=== PATIENT | male | born 1980 | race Two or more races ===

== ENCOUNTER 2019-04-18 06:35 | Emergency (ER) | payer OTHER ==
[2019-04-18] MEDS ORDERED: ACETAMINOPHEN 325 MG TABLET PO ONE (07:02)
--- NOTE | 2019-04-18 09:53 | ER Document Report ---
ED General - General Chief Complaint: Fever Stated Complaint: CONGESTION,FEVER,SORE THROAT,SHORTNESS OF BREATH Time Seen by Provider: 04/18/19 09:48 Primary Care Provider: [facility] [Outside] - Follow up in 1 week TRAVEL OUTSIDE OF THE [place] IN LAST 30 DAYS: No - HPI Notes: 38-year-old male to the emergency department with complaints of generalized body aches, fever, cough, headache, sore throat that began 2 days ago. He states that he has not been measuring his fever at home but is just felt hot. Today he has a fever of 101. He states he has been taking vywe-eur-orumfce Carol-Bricelyn without relief. He states he is concerned he may have strep throat because his daughter had strep throat. Did not get a flu shot this season. He is unsure if he has had any other sick contacts. He denies any chest pain or shortness of breath. He states his cough is productive. - Related Data Allergies/Adverse Reactions: No Known Allergies Allergy (Verified 04/18/19 07:01) Past Medical History - General Information source: Patient - Social History Smoking Status: Never Smoker Chew tobacco use (# tins/day): Yes Frequency of alcohol use: None Drug Abuse: None Lives with: Family Family History: Reviewed & Not Pertinent Patient has suicidal ideation: No Patient has homicidal ideation: No Review of Systems - Review of Systems Constitutional: Chills, Fever EENT: Nose congestion, Throat pain. denies: Ear pain Cardiovascular: denies: Chest pain, Heart racing, Orthopnea, Dizziness, Lightheaded Respiratory: Cough. denies: Short of breath, Wheezing Gastrointestinal: denies: Abdominal pain, Diarrhea, Nausea, Vomiting Genitourinary: No symptoms reported Musculoskeletal: Muscle pain - Generalized body aches Skin: No symptoms reported Hematologic/Lymphatic: No symptoms reported Neurological/Psychological: No symptoms reported -: Yes All other systems reviewed and negative Physical Exam - Vital signs Vitals: Temp Pulse Resp BP Pulse Ox 101.3 F H 104 H 20 127/73 H 97 04/18/19 07:00 04/18/19 07:00 04/18/19 07:00 04/18/19 07:00 04/18/19 07:00 Interpretation: Normal, Febrile - General General appearance: Appears well, Alert In distress: None - HEENT Head: Normocephalic, Atraumatic Eyes: Normal Pupils: PERRL Ears: Normal External canal: Normal Tympanic membrane: Normal. No: Bulging, Hemotympanum, Injected, Perforation Sinus: Normal Nasal: Normal. No: Purulent discharge Mouth/Lips: Normal. No: Angioedema Mucous membranes: Normal Pharynx: Erythema - There is mild posterior oropharyngeal erythema without exudate. No evidence for David's angina. No evidence for peritonsillar abscess. Airway is grossly patent. Uvula without edema. Uvula is midline.. No: Peritonsillar abscess, Retropharyngeal abscess, Tonsillar hypertrophy, Uvular edema, Potential airway comprom. Neck: Normal, Supple. No: Lymphadenopathy, Meningismus - Respiratory Respiratory status: No respiratory distress Chest status: Nontender. No: Accessory muscle use Breath sounds: Normal. No: Rales, Rhonchi, Wheezing Chest palpation: Normal - Cardiovascular Rhythm: Regular Heart sounds: Normal auscultation Murmur: No - Abdominal Inspection: Normal Distension: No distension Bowel sounds: Normal Tenderness: Nontender Organomegaly: No organomegaly - Back Back: Normal, Nontender - Neurological Neuro grossly intact: Yes Cognition: Normal Orientation: AAOx4 Sana Coma Scale Eye Opening: Spontaneous [place] Coma Scale Verbal: Oriented [place] Coma Scale Motor: Obeys Commands [place] Coma Scale Total: 15 Speech: Normal Cranial nerves: Normal. No: Facial palsy Cerebellar coordination: Normal Motor strength normal: LUE, RUE, LLE, RLE Additional motor exam normals: Equal renal medicine physician. No: Pronator drift Sensory: Normal - Psychological Associated symptoms: Normal affect, Normal mood - Skin Skin Temperature: Warm Skin Moisture: Dry Skin Color: Normal Course - Re-evaluation Re-evalutation: 04/18/19 Impression: Influenza. Chest x-ray is negative for pneumonia. Rapid strep is negative. Given the high incidence of influenza currently likely that this is the flu. Will not test per CDC guidelines. Patient is in range for Tamiflu. He would like to try it. I have given him information and educated him on Tamiflu. I advised that Tamiflu has a side effect profile for diarrhea that is sometimes severe. I advised to stop Tamiflu if the diarrhea is not tolerable. Patient agrees with the plan. Encouraged to return if he is worse. Encourage fluids and resting. - Vital Signs Vital signs: Temp Pulse Resp BP Pulse Ox 99.8 F 86 20 125/71 91 L 04/18/19 10:16 04/18/19 10:16 04/18/19 07:00 04/18/19 10:16 04/18/19 10:16 04/18/19 Noted improvement - Diagnostic Test Radiology reviewed: Image reviewed, Reports reviewed Discharge - Discharge Clinical Impression: Influenza, Flu-like symptoms, Cough, Generalized body aches Fever Qualifiers: Fever type: unspecified Qualified Code(s): R50.9 - Fever, unspecified Condition: Stable Disposition: HOME, SELF-CARE Instructions: Acetaminophen, Influenza ([facility]) Additional Instructions: Push fluids. Take medicine as prescribed. Tamiflu is a medicine for the flu. Note that it does have a side effect profile for diarrhea. If diarrhea is severe stop Tamiflu. Push fluids. Rest at home. Wipe down all surfaces in your home. Prescriptions: Ondansetron [Zofran Odt 4 mg Tablet] 1 - 2 tab PO Q4HP PRN #10 tab.rapdis PRN Reason: Ibuprofen [Motrin 800 mg Tablet] 800 mg PO Q8H PRN #30 tab PRN Reason: Promethazine/Dextromethorphan [Promethazine-Dm Syrup] 5 ml PO Q6H #120 ml Oseltamivir Phosphate [Tamiflu 75 mg Capsule] 75 mg PO NOW #10 capsule Forms: Return to Work Referrals: [facility] [Outside] - Follow up in 1 week
[2019-04-18 10:17] VITALS: BP 125/71
--- NOTE | 2019-04-18 10:23 | RADIOLOGY REPORT (SQ) ---
EXAM DESCRIPTION: CHEST 2 VIEWS COMPLETED DATE/TIME: 04/18/2019 10:06 am REASON FOR STUDY: productive cough, fever COMPARISON: None. EXAM PARAMETERS: NUMBER OF VIEWS: two views TECHNIQUE: Digital Frontal and Lateral radiographic views of the chest acquired. RADIATION DOSE: NA LIMITATIONS: none FINDINGS: LUNGS AND PLEURA: Incomplete inspiration. No opacities, masses or pneumothorax. No pleura l effusion. MEDIASTINUM AND HILAR STRUCTURES: No masses or contour abnormalities. HEART AND VASCULAR STRUCTURES: Heart normal size. No evidence for failure. BONES: No acute findings. HARDWARE: None in the chest. OTHER: No other significant finding. IMPRESSION: NO ACUTE RADIOGRAPHIC FINDING IN THE CHEST. TECHNICAL DOCUMENTATION: JOB ID: [id number] 2010 [employer]- All Rights Reserved Reading location - IP/workstation name: [email or web address]
== END 2019-04-18 10:45 | disposition home or self-care (01) ==
LOC: ER 06:35
DX: J11.1 Influenza due to unidentified influenza virus with other respiratory manifestations (principal); R06.02 Shortness of breath; R50.9 Fever, unspecified; M79.10 Myalgia, unspecified site; R51 Headache
CPT/HCPCS: 71046; 87070; 87880; 99283